=== PATIENT | female | born 1945 | race Caucasian/White ===

== ENCOUNTER 2021-10-02 20:15 | Outpatient (REF) | payer MEDICARE, BC, SELFPAY ==
[2021-10-02 22:18] LABS: SARS PCR* Negative SARS-CoV-2 (Negative)
== END 2021-10-02 20:16 | disposition home or self-care (01) ==
LOC: LAB 20:15
PROVIDERS: PCP Family Medicine; Visit Provider Internal Medicine
DX: Z20.822 Contact with and (suspected) exposure to COVID-19 (principal)
CPT/HCPCS: 87635

== ENCOUNTER 2021-10-03 20:36 | Outpatient (CLI) | payer MEDICARE, BC, SELFPAY | END 2021-10-03 20:37 | disposition home or self-care (01) | PROVIDERS: PCP Family Medicine; Visit Provider Internal Medicine | DX: G47.33 Obstructive sleep apnea (adult) (pediatric) (principal) | CPT/HCPCS: 95810 ==

== ENCOUNTER 2021-11-21 12:51 | Day surgery (SDC) | payer MEDICARE, BC, SELFPAY ==
[2021-11-21] MEDS: TETRACAINE 0.5% OPHTH 1 DROP EYE-LEFT ×2 (13:15→13:26)
[2021-11-21 13:17] VITALS: BMI 50.1
[2021-11-21] MEDS: KETOROLAC OPHTH 0.5% 1 DROP EYE-LEFT ×3 (13:23→13:39)
[2021-11-21 13:27] VITALS: BP 154/61; PULSE 67; RESP 16; TEMP 36.6; O2SAT 95
[2021-11-21] MEDS: SODIUM CHLORIDE 0.9 % (FLUSH) 10 ML SYRINGE IVF (13:41)
--- NOTE | 2021-11-21 13:49 | SUR.PREOP ---
The eye drops brought by the patient (Ketorolac and Prednisolone) are examined and I have determined they are labeled by the patient's pharmacy for this patient as prescribed by the surgeon. The bottles are intact, recently obtained and appear to be correct.
[2021-11-21] MEDS: TETRACAINE 0.5% OPHTH 2 DROP EYE-LEFT (14:14)
--- NOTE | 2021-11-21 14:18 | W.ANESCHARGE ---
Anesthesia Charges Start Date/Time Anesthesia Start Date: 11/21/21 Anesthesia Start Time: 14:10 Stop Date/Time Anesthesia Stop Date: 11/21/21 Anesthesia Stop Time: 14:55 Summary Emergency: No Extremes of Age: Over 69-CPT 14457
[2021-11-21] MEDS: BALANCED SALT IRRIG SOLN 15 ML EYE-LEFT (14:19)
--- NOTE | 2021-11-21 14:51 | P.OPTPRC_ITS ---
Procedure Note Date of procedure: 11/21/21 Will [facility] bill your pro fee for this procedure?: Yes Procedure Description: SURGEON: Monica Beasley MD PREOPERATIVE DIAGNOSIS: 1. Nuclear sclerotic cataract, left eye. 2. Miosis, left eye. POSTOPERATIVE DIAGNOSIS: 1. Nuclear sclerotic cataract, left eye. 2. Miosis, left eye. NAME OF OPERATION: Phacoemulsification of cataract with posterior chamber intraocular lens implantation in the left eye with pupilloplasty. ANESTHESIA: Topical. ESTIMATED BLOOD LOSS: Less than 2 cc. COMPLICATIONS: None. PATHOLOGY SPECIMEN: None. INDICATIONS: See consult note for details. The risks, benefits and alternatives of the procedure were explained to the patient, who elected to proceed and signed informed consent to do so. PROCEDURE: The patient was brought to the pre-holding area where the left eye was identified as the operative eye. I placed my initials above this eye. The patient received eye drops consisting of 0.5% tetracaine, 1% tropicamide, 10% phenylephrine, and 0.5% ketorolac. The patient was then brought to the operating room where the left eye was again identified as the operative eye. The eye was prepped with Betadine and draped in the usual sterile ophthalmic fashion. A #15 super-sharp blade was used to create a paracentesis site. 1% non-preserved intracameral lidocaine was injected into the anterior chamber. Endocoat was injected into the anterior chamber. A 2.4 mm keratome was used to create a three-plane self-sealing incision 1 mm anterior to the temporal limbus. A #15 super-sharp blade was used to create four additional paracentesis sites. Four Grieshaber iris hooks were placed in order to stretch the iris. A cystotome was used to create an anterior capsular leaflet. The Utrata forceps were used to extend this to form a continuous curvilinear capsulorrhexis. Hydrodissection was performed. The cataract was removed with phacoemulsification using the [id number] technique. The irrigation and aspiration tip was used to remove the remaining cortex. Healon was injected into the capsular bag. An DEBBIE ZCB00 intraocular lens of 22.5 diopters was injected into the capsular bag. The four Grieshaber iris hooks were removed. The irrigation and aspiration tip was used to remove the remaining viscoelastic. Miostat was injected into the anterior chamber. Balanced salt solution on a cannula was used to hydrate the wound, and the wound was found to be watertight. The pupil was noted to be round. DISPOSITION: The patient was taken to the recovery room and discharged to home in stable condition. The patient was instructed to call me or go to the emergency department with any sudden change, including dramatic loss of vision, severe pain in the eye or eyebrow region, nausea, or vomiting. The patient will follow up in the clinic tomorrow morning. Surgeon: Monica Beasley MD
[2021-11-21 15:02] VITALS: BP 135/68; PULSE 73; RESP 16; TEMP 36.8; O2SAT 99
--- NOTE | 2021-11-21 15:46 | W.ANESCHARGE ---
Anesthesia Charges Start Date/Time Anesthesia Start Date: 11/21/21 Anesthesia Start Time: 14:10 Stop Date/Time Anesthesia Stop Date: 11/21/21 Anesthesia Stop Time: 14:55 Summary Emergency: No Extremes of Age: Over 69-CPT [id number]
== END 2021-11-21 15:24 | disposition home or self-care (01) ==
PROVIDERS: PCP Family Medicine; Visit Provider Ophthalmology
PROC: (CPT 66982; principal; 2021-11-21 12:45)
DX: H25.12 Age-related nuclear cataract, left eye (principal); H57.03 Miosis
CPT/HCPCS: 66982; 00142; 99100; A9270; J2250; J3010; V2632

== ENCOUNTER 2021-12-05 09:00 | Day surgery (SDC) | payer MEDICARE, BC, SELFPAY ==
[2021-12-05] MEDS: TETRACAINE 0.5% OPHTH 1 DROP EYE-RIGHT ×2 (09:25→09:35)
[2021-12-05] MEDS: TETRACAINE 0.5% OPHTH 2 DROP EYE-RIGHT ×2 (09:25→10:35)
[2021-12-05 09:33] VITALS: BMI 50.1
[2021-12-05] MEDS: KETOROLAC OPHTH 0.5% 1 DROP EYE-RIGHT ×3 (09:33→09:48)
[2021-12-05 09:40] VITALS: BP 132/55; PULSE 68; RESP 20; TEMP 36.5; O2SAT 93
[2021-12-05] MEDS: BALANCED SALT IRRIG SOLN 15 ML EYE-RIGHT (10:40)
--- NOTE | 2021-12-05 11:08 | W.ANESCHARGE ---
Anesthesia Charges Start Date/Time Anesthesia Start Date: 12/05/21 Anesthesia Start Time: 10:31 Stop Date/Time Anesthesia Stop Date: 12/05/21 Anesthesia Stop Time: 11:12 Summary Emergency: No Extremes of Age: Over 69-CPT 49164
[2021-12-05 11:09] VITALS: BP 127/57; PULSE 72; RESP 18; TEMP 36.8; O2SAT 90
--- NOTE | 2021-12-05 11:15 | W.ANESCHARGE ---
Anesthesia Charges Start Date/Time Anesthesia Start Date: 12/05/21 Anesthesia Start Time: 10:31 Stop Date/Time Anesthesia Stop Date: 12/05/21 Anesthesia Stop Time: 11:12 Summary Emergency: No Extremes of Age: Over 69-CPT [id number]
--- NOTE | 2021-12-05 12:37 | P.OPTPRC_ITS ---
Procedure Note Date of procedure: 12/05/21 Will [facility] bill your pro fee for this procedure?: Yes Procedure Description: SURGEON: Monica Beasley MD PREOPERATIVE DIAGNOSIS: 1. Nuclear sclerotic cataract, right eye. 2. Miosis, right eye. POSTOPERATIVE DIAGNOSIS: 1. Nuclear sclerotic cataract, right eye. 2. Miosis, right eye. NAME OF OPERATION: Phacoemulsification of cataract with posterior chamber intraocular lens implantation in the right eye with pupilloplasty. ANESTHESIA: Topical. ESTIMATED BLOOD LOSS: Less than 2 cc. COMPLICATIONS: None. PATHOLOGY SPECIMEN: None. INDICATIONS: See consult note for details. The risks, benefits and alternatives of the procedure were explained to the patient, who elected to proceed and signed informed consent to do so. PROCEDURE: The patient was brought to the pre-holding area where the right eye was identified as the operative eye. I placed my initials above this eye. The patient received eye drops consisting of 0.5% tetracaine, 1% tropicamide, 10% phenylephrine, and 0.5% ketorolac. A [place] balloon was placed for 8 minutes pre-operatively. The patient was then brought to the operating room where the right eye was again identified as the operative eye. The eye was prepped with Betadine and draped in the usual sterile ophthalmic fashion. A #15 super-sharp blade was used to create a paracentesis site. 1% non-preserved intracameral lidocaine was injected into the anterior chamber. Endocoat was injected into the anterior chamber. A 2.4 mm keratome was used to create a three-plane self-sealing incision 1 mm anterior to the temporal limbus. A #15 super-sharp blade was used to create four additional paracentesis sites. Four Grieshaber iris hooks were placed in order to stretch the iris. A cystotome was used to create an anterior capsular leaflet. The Utrata forceps were used to extend this to form a continuous curvilinear capsulorrhexis. Hydrodissection was performed. The cataract was removed with phacoemulsification using the [id number] technique. The irrigation and aspiration tip was used to remove the remaining cortex. Healon was injected into the capsular bag. An DEBBIE ZCB00 intraocular lens of 22.0 diopters was injected into the capsular bag. The four Grieshaber iris hooks were removed. The irrigation and aspiration tip was used to remove the remaining viscoelastic. Miostat was injected into the anterior chamber. Balanced salt solution on a cannula was used to hydrate the wound, and the wound was found to be watertight. The pupil was noted to be round. DISPOSITION: The patient was taken to the recovery room and discharged to home in stable condition. The patient was instructed to call me or go to the emergency department with any sudden change, including dramatic loss of vision, severe pain in the eye or eyebrow region, nausea, or vomiting. The patient will follow up in the clinic tomorrow morning. Surgeon: Monica Beasley MD
== END 2021-12-05 11:45 | disposition home or self-care (01) ==
PROVIDERS: PCP Family Medicine; Visit Provider Ophthalmology
PROC: (CPT 66982; principal; 2021-12-05 09:00)
DX: H57.03 Miosis (principal); H25.11 Age-related nuclear cataract, right eye
CPT/HCPCS: 66982; 00142; 99100; A9270; J2250; J3010; V2632

== ENCOUNTER 2023-09-28 16:15 | Outpatient (CLI) | payer MEDICARE, BC, SELFPAY | END 2023-09-28 16:16 | disposition home or self-care (01) | LOC: AMB 09-29 05:47 | PROVIDERS: PCP Family Medicine; Visit Provider Emergency Medicine | DX: R06.09 Other forms of dyspnea (principal) | CPT/HCPCS: A0425; A0427 ==

== ENCOUNTER 2024-03-15 13:36 | Outpatient (REF) | payer MEDICARE, BC, SELFPAY ==
[2024-03-15 14:12] LABS: Bilirubin Urine Negative (Negative); Blood Urine Negative (Negative); Color Urine Yellow (Yellow); Glucose Urine Negative (Negative); Ketones Urine Negative (Negative); Leukocyte Esterase Urine Trace (Negative); Nitrite Urine Positive (Negative); Protein Urine Negative (Negative); Urobilinogen Urine 0.2 (0.2-1.0); pH Urine 5.5 (5.0-8.5)
[2024-03-15 14:44] LABS: Appearance Urine Cloudy (Clear)
[2024-03-15 14:46] LABS: Bacteria Urine Many; RBC Urine 0-2 (0-2); Squamous Epithelial Cell Urine Few (None-Few)
== END 2024-03-15 13:37 | disposition home or self-care (01) ==
LOC: NPINS 13:36
PROVIDERS: PCP Family Medicine; Visit Provider Nurse Practitioner Gerontology
DX: N39.0 Urinary tract infection, site not specified (principal)
CPT/HCPCS: 81001; 81003; 87086

== ENCOUNTER 2024-04-07 14:24 | Outpatient (REF) | payer MEDICARE, BC, SELFPAY ==
[2024-04-07 15:04] LABS: Appearance Urine Clear (Clear); Bilirubin Urine Negative (Negative); Blood Urine Negative (Negative); Color Urine Yellow (Yellow); Glucose Urine Negative (Negative); Ketones Urine Negative (Negative); Leukocyte Esterase Urine Negative (Negative); Nitrite Urine Negative (Negative); Protein Urine Negative (Negative); Urobilinogen Urine 0.2 (0.2-1.0)
[2024-04-07 15:13] LABS: RBC Urine 0-2 (0-2); WBC Urine 0-2 (0-5)
== END 2024-04-07 14:25 | disposition home or self-care (01) ==
LOC: NPINS 14:24
PROVIDERS: PCP Family Medicine; Visit Provider Nurse Practitioner Gerontology
DX: R35.0 Frequency of micturition (principal)
CPT/HCPCS: 81001; 87086

== ENCOUNTER 2024-04-27 11:21 | Outpatient (REF) | payer MEDICARE, BC, SELFPAY ==
[2024-04-27 11:55] LABS: Chloride* 103 mmol/L (96-114); Sodium* 138 mmol/L (135-149)
[2024-04-27 11:56] LABS: Potassium* 4.3 mmol/L (3.6-5.1)
[2024-04-27 11:59] LABS: Anion Gap 14 mEq/L (7-15); Blood Urea Nitrogen* 34 mg/dL (7-30); Calcium* 9.6 mg/dL (8.4-10.6); Carbon Dioxide* 21 mmol/L (20-32); Creatinine* 1.3 mg/dL (0.5-1.5); Estimated Glomerular Filt Rate 42 ml/min; Glucose* 232 mg/dL (60-115)
[2024-04-27 12:02] LABS: Hemoglobin A1C* 8.3 % (0-5.6)
== END 2024-04-27 11:22 | disposition home or self-care (01) ==
LOC: NPINS 11:21
PROVIDERS: PCP Family Medicine; Visit Provider Nurse Practitioner Gerontology
DX: E11.9 Type 2 diabetes mellitus without complications (principal)
CPT/HCPCS: 80048; 83036

== ENCOUNTER 2024-11-18 12:33 | Outpatient (REF) | payer MEDICARE, BC, SELFPAY ==
[2024-11-18 12:46] LABS: Appearance Urine Cloudy (Clear)
--- OUTSIDE RECORDS SUMMARY | 2024-11-19 00:14 | XMS_ITS | Clinical Summary ---
Author Organization 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. For routine questions regarding patient records, call [phone] during business hours, M-F 8:00 AM - 5:00 PM Central Time. Record requests for emergency care only can be directed to [phone] at any time.[facility] Allergies Active Allergy Reactions Criticality Noted Date Comments Kiwi Anaphylaxis 08/04/2006 Metformin Nausea Only Swelling of legs Naproxen Rash Nitrofurantoin Rash 05/09/2020 Oxybutynin Rash 04/30/2019 Penicillins Rash Pioglitazone Edema (Reselect Reaction) Sulfamethoxazole-Trimeth oprim Rash 03/08/2020 Her face is entirely red after 3 doses of septra per Daughter(Dr. Rene see notes 03/08/2020) Medications * This document contains information received from the source organization and may not represent a complete record from that organization. atorvastatin (LIPITOR) 40 mg tablet Take 40 mg by mouth at bedtime. 8 Active compress.stock ing,knee,reg,m ed misc For home use. Knee high compression stockings, 20-30 mm HG 7 Active famotidine (PEPCID) 20 mg tablet Take 20 mg by mouth 2 (two) times a day. 2 8 Active insulin syringe-needle U-100 0.5 mL 31 gauge x 5/16 syringe For administering insulin at home. Patient needs 3/10 cubic centimeters syringe with 1/2 inch 30 G needles. 6 Active nitroglycerin (NITROSTAT) 0.[address] 0.4 mg under the tongue every 5 (five) minutes as needed for chest pain. 7 Active cetirizine (ZyrTEC) 10 mg tablet Take 10 mg by mouth daily. 4 Active cholecalcifero l (VITAMIN D3) 50 mcg (2,000 Unit) capsule Take 3 capsules by mouth 2 (two) times a day. 0 Active sertraline (ZOLOFT) 50 mg tablet Take 50 mg by mouth daily. Active rivaroxaban (Xarelto) 15 mg tablet Take 15 mg by mouth daily with evening meal. Active acetaminophen (TYLENOL) 325 mg tablet Take 2 tablets (650 mg total) by mouth every 4 (four) hours as needed for pain or fever. 0 1 Active Additional Information Patient taking differently:650 mg oral2 times daily, Reported on 09/29/2023 polyethylene glycol (MIRALAX) 17 gram powder packet Take 1 packet (17 g total) by mouth daily as needed for constipation. Dissolve each 17 g dose in 240 mLs (8 ounces) of beverage. 1 Active multivitamin-e ye (PRESERVISION LUTEIN) 226 mg-200 Unit-5 mg-0.8 mg capsule Take 1 capsule by mouth 2 (two) times a day. Active potassium chloride (KLOR-CON M) 10 mEq ER tablet TAKE 1 TABLET (10 MEQ) BY MOUTH ONCE DAILY WITH A MEAL. 2 Active UltiCare Pen Needle 29 gauge x 1/2 needle USE PER MD INSTRUCTIONS (5 INJECTIONS DAILY) 3 Active montelukast (SINGULAIR) 10 mg tablet Take 10 mg by mouth at bedtime. 3 Active insulin glargine 100 unit/mL (3 mL) pen Inject 8-30 Units under the skin 2 (two) times a day. 30 units in the morning and 8 units in the evening. Active insulin aspart, niacinamide, (Fiasp U-100 Insulin) 100 unit/mL vial Inject 14 Units under the skin 3 (three) times a day with meals. Plus sliding scale Active DME OxygenIndicati ons:COVID-19 Infection,Morb id Obesity Body Mass Index 50.0-59.9 Adult (HCC) DME Order - for details see Order Report 1 each 4 Active DME OxygenIndicati ons:COVID-19 Infection,Morb id Obesity Body Mass Index 50.0-59.9 Adult (HCC) DME Order - for details see Order Report 1 each 4 Active torsemide (Demadex) 20 mg tablet Take 1 tablet (20 mg total) by mouth daily. 4 Active lisinopriL 10 mg tabletIndicati ons:Chronic Diastolic (Congestive) Heart Failure (HCC),Hyperten cosme Essential Primary Take 1 tablet (10 mg total) by mouth daily. Hold until PCP follow-up. 4 Active Active Problems Problem Noted Date Diagnosed Date COVID-19 Infection 09/28/2023 Morbid Obesity Body Mass Index 50.0-59.9 Adult 1 03/13/2022 Chronic Diastolic (Congestive) Heart Failure 02/2022 Failure Renal Acute (Acute Kidney Injury) 2021 Shortness Of Breath 11/30/2020 Dyslipidemia 11/30/2020 Personal History Of Infectio us And Parasitic Disease (COVID-19) 11/30/2020 Half-Way (Current) Anticoagulant Treatment 11/11 Atrial Fibrillation Paroxysmal 11/30/2020 Atherosclerotic Heart Diseas e Of [place] Coronary Artery Without Angina Pectoris 10/01/2020 Diabetes Mellitus Type 2 09/25/2020 Chronic Systolic (Congestive) Heart Failure 09/10 Incontinence Urinary 02/17/2018 Apnea Sleep Obstructive 11/13/2017 Presence Of Right Artificial Knee Joint 04/30/19 Hypertension Essential Primary 02/23/2013 Resolved Problems Problem Noted Date Diagnosed Date Resolved Date Respiratory Failure With Hypoxia 09/25/2020 11/30/2020 Flutter Atrial 09/25/2020 11/30/2020 Pneumonia Due To COVID-19 09/20/2020 Immunizations Immunization Administration Dates Next Due Influenza TIV (IM) 11/03/2018,,01/17/2017,2012,11/29/2011,11/22/2010,11/30/2009,1 02/14/2008,12/15/2007,12/04/2006, 005,11/29/2003,12/08/2002 Influenza, Quadrivalent, Adj uvanted, Preservative Free 12/17/2019 PCV13 02/21/2015 PPSV23 11/29/2011,02/10/1995 Td, (Adult) Unspecified 07/02/2002 Tdap 02/21/2015 influenza trivalent high dos e (HD)(PF) 01/25/2016,12/26/2014,12/03/2013 Social History Tobacco Use Types Packs/Day Years Used Date Smoking Tobacco: Former Smokeless Tobacco: Never Tobacco Cessation:Counseling Given: Not Answered Alcohol Use Standard Drinks/Week Comments Not Currently 0 (1 standard drink = 0.6 oz pur e alcohol) [facility] Utilities Answer Date Recorded In the past [address] [facility] [employer], oil, or water Wanna Migrate threatened to shut off services in your home? Patient declined 10/01/2023 Humiliation, Afraid, Rape, and Kick questionnair e Answer Date Recorded Within the last year, have y ou been afraid of your partner or ex-partner? Patient declined 10/01/2023 Within the last year, have y ou been humiliated or emotionally abused in other ways by your partner or ex-partner? Patient declined 10/01/2023 Within the last year, have y ou been kicked, hit, slapped, or otherwise physically hurt by your partner or ex-partner? Patient declined 10/01/2023 Within the last year, have y ou been raped or forced to have any kind of sexual activity by your partner or ex-partner? Patient declined 10/01/2023 Hunger Vital Sign Answer Date Recorded Within the past 12 months, y ou worried that your food would run out before you got the money to buy more. Patient declined Within the past 12 months, t he food you bought just didn't last and you didn't have money to get more. Patient declined PRAPARE - Transportation Answer Date Re corded In the past 12 months, has l ack of transportation kept you from medical appointments or from getting medications? Patient declined 10/01/2023 In the past 12 months, has l ack of transportation kept you from meetings, work, or from getting things needed for daily living? Patient declined 10/01/2023 Housing Stability Answer Date Recorded What is your living situation today? Patient dec lined 10/01/2023 Comments No Sex and Gender Information Value Date Recorded Sex Assigned at Female 09/08/2017 3:10 PM CDT Legal Sex Female 12:24 PM CDT Gender Identity Female 09/08/2017 3:10 PM CDT Sexual Orientation Straight 09/08/2017 3: 10 PM CDT Last Filed Vital Signs Vital Sign Reading Time Taken Comments Blood Pressure 136/61 10/02/2023 4:07 PM CDT Pulse 75 10/02/2023 4:07 PM CDT Temperature 36.9 C (98.4 F) 10/02/2023 4:07 PM CDT Respiratory Rate 16 10/02/2023 4:07 PM CDT Oxygen Saturation 92% 10/02/2023 4:07 PM CDT Inhaled Oxygen Concentration - - Weight 124 kg (274 lb 4 oz) 10/01/2023 5:00 AM C DT Height 160 cm (5' 3) 09/28/2023 7:52 PM CDT Body Mass Index 48.58 09/28/2023 7:52 PM CDT Plan of Treatment Health Maintenance Due Date Last Done Comments Diabetic Eye Exam 1945 Diabetic Office Visit with Foot Exam 1944 Office Visit for Blood Pressure Check / Re-check 1945 Zoster Vaccines (1 of 2) 1994 RSV vaccine - (32-36 weeks) or 50+ years (1 - 1-dose 75+ series) 05/05/2019 Urine Albumin 07/10/2022 07/10/2021 Depression Screening (Annual PHQ-2) 02/11/2024 Fall Risk Screen (Annual) 02/11/2024 Hemoglobin A1C 05/17/2024 11/17/2023, 06/2 09/2023, 01/06/2023, Additional history exists Creatinine Level (Kidney Function Test) 10/05/2024 10/06/2023, 10/02/2023, 10/01/2023, Additional history exists Potassium Level 10/05/2024 10/06/2023, 09/11, 10/01/2023, Additional history exists Sodium Level 10/05/2024 10/06/2023, 09/11, 10/01/2023, Additional history exists COVID-19 Vaccine ( season) 2024 Influenza Vaccine (#1) 2024 , 01/07/2023, 12/18/2021, Additional history exists DTaP,Tdap,and Td Vaccines (2 - Td or Tdap) 02/21/2025 02/21/2015, 07/02/2002 Bone Density Scan (Osteoporosis Screen) Discontinued 12/03/2011 Pneumococcal vaccine (50+ years) Completed 02/21/2015, 11/29/2011, 02/10/1995 Mammogram Discontinued 04/16/2022, 12/0 08/2020, 12/29/2019, Additional history exists HPV Vaccines Aged Out No longer eligi ble based on patient's age to complete this topic IPV Vaccines Aged Out No longer eligi ble based on patient's age to complete this topic Medical Devices Implanted Type 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 Device Identifier Shelf Expiration Date Model / Serial / Lot Knee Implant Knee Implant Right: Knee Stent Other Stent Other Heart Procedures Procedure Name Priority Date/Time Associated Diagnosis Comments BASIC METABOLIC PANEL, S/P Routine 10/02/2023 4:39 AM CDT HEMOGLOBIN A1C, B Routine 06/10/2022 1:0 4 PM CDT Hypertension Essential Primary Diabetes Mellitus Type 2 (HCC) ALBUMIN, RANDOM, U Routine 07/10/2021 9: 58 AM CDT Failure Renal Acute (Acute Kidney Injury) (HCC) Congestive Heart Failure (HCC) Diabetes Mellitus Type 2 With Diabetic Chronic Kidney Disease (HCC) Hypertension And Chronic Kidney Disease Stage 1 To 4 from Last 3 Months or Most Recently Relevant to Health Maintenance Results * (ABNORMAL) Basic Metabolic Panel (10/02/2023 4:39 AM CDT) Pathologist [facility] Potassium, S 4.4 3.6 - 5.2 mmol/L 10/02/2023 5:56 AM CDT DTL Sodium, S 139 135 - 145 mmol/L 10/02/2023 5:56 AM CDT DTL Chloride, S 103 98 - 107 mmol/L 10/02/2023 5:56 AM CDT DTL Bicarbonate, S 21(L) 22 - 29 mmol/L 10/02/2023 5:56 AM CDT DTL Anion Gap 15 7 - 15 10/02/2023 5:56 AM CDT DTL BUN (Blood Urea Nitrogen), S 45(H) 6 - 21 mg/dL 10/02/2023 5:56 AM CDT DTL Creatinine 1.37(H) 0.59 - 1.04 mg/dL 10/02/2023 5:56 AM CDT DTL Estimated GFR (eGFR) 39(L) >=60 mL/min/BSA 10/02/2023 5:56 AM CDT DTL Comment: Estimated GFR calculated using the 2020 CKD_EPI creatinine equation. Calcium, Total, S 9.1 8.8 - 10.2 mg/dL 10/02/2023 5:56 AM CDT DTL Glucose, S 142(H) 70 - 140 mg/dL 10/02/2023 5:56 AM CDT DTL Blood (Blood, Venous) 10/02/2023 4:39 AM CDT 10/02/2023 5:37 AM CDT Desiree Bundy M.D. LAB BLOOD ADD-ON Final Resul t [facility] [address] [place] [address], [facility] [place] [facility] [address] [place] [address] * (ABNORMAL) Hemoglobin A1c (06/10/2022 1:04 PM CDT) Hemoglobin A1c, B 8.1(H) 4.0 - 5.6 % 06/10/2022 2:02 PM CDT DTL Comment: Hemoglobin A1c values greater than or equal to 6.5 percent are diagnostic for diabetes mellitus. Diagnosis should be confirmed by repeat testing. In diabetic patients, HbA1c goals should be discussed with healthcare provider. Blood (Blood, Venous) 06/10/2022 1:04 PM CDT 06/10/2022 1:31 PM CDT Margarito Irizarry M.D. LAB BLOOD ADD-ON Final Resu lt Performing Organization Address City/[facility]/ZIP Co de Phone Number [facility] [address] [place] [address], [facility] [address] [place] [address] * (ABNORMAL) Albumin, Random, Urine (07/10/2021 9:58 AM CDT) Pathologist [facility] Albumin, Random, U 29.4 mg/L 2021 11:34 AM CDT DTL Comment: ----ADDITIONAL INFORMATION---- This test has been modified from the forecast analyst's instructions. Its performance characteristics were determined by [facility] in a manner consistent with CLIA requirements. This test has not been cleared or approved by the U.S. Food and Drug Administration. Creatinine 65 mg/dL 07/10/2021 11:33 AM CDT DTL Albumin/Creatinine Ratio 45(H) <25 mg/g 07/10/2021 11:34 AM CDT DTL Urine (Urine, Voided) 07/10/2021 9:58 AM CDT 07/10/2021 10:24 AM CDT Anshu Birch M.D. LAB URINE ORDERABLES Final Result Performing Organization Address [facility] Co de Phone Number [facility] [address] [place] [address], [facility] [address] [place] [address] from Last 3 Months or Most Recently Relevant to Health Maintenance Insurance MEDICARE [facility] [place] [address] Advance Directives For more information, please contact: [phone] * DNR/DNI (Latest Code Status on File) Date Activated Date Inactivated Comments 09/28/2023 11:07 PM 10/02/2023 6:49 PM Question Answer Comments DNR/DNI (Do Not Resuscitate/Do Not Intubate): Di scussed-Patient * DNR Date Activated Date Inactivated Comments 11/30/2020 10:12 PM 12/04/2020 6:20 PM * DNR/DNI Date Activated Date Inactivated Comments 11/30/2020 10:05 PM 11/30/2020 10:11 PM * DNR Date Activated Date Inactivated Comments 09/20/2020 6:05 PM 10/06/2020 12:12 PM Healthcare Agents on File Name Relationship Healthcare Agent Relationshi p Communication Myrna Styles Daughter Health Care Agent Care Teams Television Repair Teacher Relationship Specialty Start Date End Date Elsewhere, Pcp PCP - General Family Medicine 12/01/20
--- OUTSIDE RECORDS SUMMARY | 2024-11-19 00:14 | XMS_ITS | Clinical Summary ---
Author Organization [facility] Address [address] [place] [address] Care Team Providers Care Customs Inspector Name Role Phone Diego Hyatt MD Primary Care Provider [phone] Allergies Active Allergy Reactions Criticality Noted Date Comments Pioglitazone Edema Kiwi Throat Swelling/Closing 08/04/2006 Nitrofurantoin Rash 05/09/2020 Metformin Nausea Only Swelling of legs Naproxen Rash Oxybutynin Rash 04/30/2019 Penicillins Rash Pioglitazone Edema 01/07/2023 Sulfamethoxazole-Trimetho prim Rash 03/08/2020 Her face is entirely red after 3 doses of septra per Daughter(Dr. Rene see notes 03/08/2020) Medications cholecalciferol (VITAMIN D) 1,000 unit capsule Take 2 capsules by mouth once daily. 0 0 Active Walker with Wheels As directed. For home use. Diagnosis: hip pain, 719.45 1 Device 0 2 Active Diabetic Supplies, Miscellan.Indica tions:Type II or unspecified type diabetes mellitus without mention of complication, not stated as uncontrolled (HC) Dispense glucose meter, test strips and lancets covered by patient insurance. Test 4 times per day. One touch ultrasound monitor 1 Kit 0 2 Active cetirizine (ZYRTEC) 10 mg tablet Take 1 tablet by mouth once daily. 0 4 Active Diabetic ShoeIndications: Type 2 diabetes mellitus without complication, with long-term current use of insulin (HC) As directed 2 Each. 1 Units 7 Active Chair LiftIndications: Pneumonia due to COVID-19 virus,Weakness of both lower extremities Lift chair For home use. 1 Each 1 Active Comp Stocking,Knee,Re gular,MedIndicat ions:Bilateral lower extremity edema For home use. Knee high compression stockings, 20-30 mm HG. 4 pairs 4 Each 2 1 Active polyethylene glycol (MIRALAX; GLYCOLAX) 17 g powder for solution Mix 17 g in liquid then take by mouth once daily if needed. 1 Active pen needle,diabetic dual safty (BD AutoShield Duo Pen Needle) 30 gauge x 04/25 ndleIndications: Type 2 diabetes mellitus without complication, with long-term current use of insulin (HC) As directed. 200 Each 11 1 Active acetaminophen (TYLENOL) 325 mg tablet Take 2 Tablets (650 mg) by mouth every 4 hours if needed. 0 1 Active Incontinence Pad, Liner, Disp padsIndications: Mixed incontinence Use as needed 72 Each 11 2 Active vit C,L-Pv-dixmo-lut ein-zeaxan (PreserVision AREDS-2) capsuleIndicatio ns:Bilateral exudative age-related macular degeneration, unspecified stage (HC) Take 1 Capsule by mouth once daily. 0 3 Active nitroglycerin (Nitrostat) 0.4 mg sublingual tabletIndication s:Pre-clinical coronary artery disease Place 1 Tablet (0.4 mg) under the tongue every 5 minutes if needed for Chest Pain. 25 Tablet 4 3 Active benzonatate (TESSALON) 100 mg capsuleIndicatio ns:Cough in adult Take 1-2 Capsules (100-200 mg) by mouth 3 times daily if needed for Cough. 30 Capsule 4 Active rivaroxaban (Xarelto) 15 mg tab tabletIndication s:Atrial flutter, unspecified type (HC) TAKE 1 TABLET (15 MG) BY MOUTH ONCE DAILY 90 Tablet 3 4 Active Insulin [place], Disposable, (UltiCare Pen Needle) 29 gauge x 1/2Indications: Type 2 diabetes mellitus with chronic kidney disease, with long-term current use of insulin, unspecified CKD stage (HC) USE PER MD INSTRUCTIONS (5 INJECTIONS DAILY)-- #500 is a 3 month supply. 500 Each 3 4 Active blood sugar diagnostic (FreeStyle Test) stripIndications :Type 2 diabetes mellitus with chronic kidney disease, with long-term current use of insulin, unspecified CKD stage (HC) Free Style Cassandra. E11.9 IDDM type II - Test 3 times/day.Free Style [place]andra. E11.9 IDDM type II - Test strips to check the monitor 30 Each 5 4 Active potassium chloride (KLOR-CON M10) 10 mEq extended-release tablet (part/cryst)Xenia cations:Hypokale fely TAKE 1 TABLET (10 MEQ) BY MOUTH ONCE DAILY WITH A MEAL. 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 1 Each 4 Active atorvastatin (LIPITOR) 40 mg tabletIndication s:Dyslipidemia TAKE 1 TABLET (40 MG) BY MOUTH ONCE DAILY. 90 Tablet 3 4 Active famotidine (PEPCID) 20 mg tabletIndication s:Gastroesophage al reflux disease without esophagitis TAKE 1 TABLET (20 MG) BY MOUTH 2 TIMES DAILY. 180 Tablet 3 4 Active sertraline (ZOLOFT) 100 mg tabletIndication s:Adjustment disorder with depressed mood Take 1 Tablet (100 mg) by mouth once daily in the morning. 90 Tablet 3 4 Active wheelchairIndica tions:Chronic pain of right knee,Quadriceps muscle rupture, right, sequela Motorized Wheelchair: Bariatric (over 250 lbs) Length of need: 99 months, [employer] carry on brand 1 Each 4 Active lisinopriL (PRINIVIL; ZESTRIL) 10 mg tabletIndication s:HTN (hypertension) TAKE 1 TABLET (10MG) BY MOUTH ONCE DAILY. 90 Tablet 3 4 Active torsemide (DEMADEX) 20 mg tabletIndication s:HTN (hypertension),B ilateral lower extremity edema TAKE ONE TABLET BY MOUTH ONCE DAILY 90 Tablet 4 Active insulin aspart niacinamide (Fiasp FlexTouch U-100 Insulin) 100 unit/mL (3 mL) penIndications:T ype 2 diabetes mellitus with diabetic chronic kidney disease, unspecified CKD stage, unspecified whether fpc insulin use (HC) Use 10-18 units before each meal 5 Active Basaglar KwikPen U-100 Insulin 100 unit/mL (3 mL) penIndications:T ype 2 diabetes mellitus with chronic kidney disease, with long-term current use of insulin, unspecified CKD stage (HC) Product desired: BASAGLAR KWIKPEN,BASAGLAR KWIKPEN, inject 24 units in the AM and 8 units in the PM 5 Active traMADoL (ULTRAM) 50 mg tablet 5 Active CPAPIndications: PAULA (obstructive sleep apnea) RESMED CPAP (E0601) machine for home use at pressure: 17 with EPR of 3 cmw, Choice of mask (A7030 or A7034) w/full face cushion (A7031) x1/mo, nasal cushion (A7032) x2/mo, or nasal pillows (A7033) x 2/mo; Length of Need: 99 months; Frequency of use: Daily 1 Each 11 5 Active Active Problems Problem Noted Date Diagnosed Date Bilateral exudative age-rela mana macular degeneration, unspecified stage 08/08/2023 Depression, recurrent 10/10/2022 Chronic diastolic CHF (congestive heart failure) 03/21/2022 Type 2 diabetes mellitus wit h stage 3b chronic kidney disease, with long-term current use of insulin 03/21/2022 Acute renal failure 04/20/2021 Paroxysmal atrial fibrillation 11/30/2020 Shortness of breath 11/30/2020 Atherosclerotic heart diseas e of [place] coronary artery without angina pectoris 10/01/2020 Type 2 diabetes mellitus wit h chronic kidney disease, with long-term current use of insulin 03/03/2018 Urinary incontinence in female 02/17/2018 Type 2 diabetes mellitus wit h diabetic chronic kidney disease 02/13/2018 Bronchitis 11/17/2017 PAULA 07/22/2005 AHI-105 11/13/2017 Morbid obesity with BMI of 50.0-59.9, adult 08/11 S/P total knee arthroplasty, right 04/29/2017 Presence of right artificial knee joint 04/30/19 18 Onychomycosis 08/20/2016 Chest pain 03/28/2015 Former smoker 03/28/2015 Adenomatous colon polyp 03/25/2014 Overview (03/25/2014): Colonoscopy 03/2014 polyps repeat in 5 years HTN (hypertension) 02/23/2013 Degenerative arthritis of knee and hip 2 Vitamin D deficiency 03/17/2009 UTI (lower urinary tract infection) 11/10/2008 Type II diabetes mellitus 01/01/2002 Dyslipidemia Sleep apnea Osteoarthrosis, unspecified whether generalized or localized, unspecified site Obesity ASCVD (arteriosclerotic cardiovascular disease) Overview (03/28/2015): -Stenting to diagonal 1 03/10/2009 -Stress Myoview 02/07/2010: negative for ischemia, EF 68% -Stress Myoview 03/21/2015 Medium sized area of mild ischemia involving the mid and apical anterior wall and apex EF 67% Resolved Problems Problem Noted Date Diagnosed Date Resolved Date Angina concurrent with and d ue to arteriosclerosis of coronary artery 06/05/202107/12 Chest tightness, discomfort, or pressure 02/28/2009 12/01/2011 Fluid overload 08/04/2006 12/01/2011 Overview (11/10/2009): Inactive ICD-9 code replaced with correct active ICD-9. Display name retained. Encounters Date Type Department Care Team Description 09/02/2024 3:00 PM CDT Office Visit [facility] [address] [place] [address] Zay Patiño MD Sleep Follow-up 09/02/2024 Travel from Last 3 Months Immunizations Immunization Administration Dates Next Due AMB INFLUENZA IIV3 (AGE 65+ YRS) PF (Flu Clinic Only) 01/16/2018 Amb Influenza, Inact (High-d ose) (Flu Clinic Only) 12/03/2013 Influenza Virus, Unspecified 11/24/2012, 11/29/2011,11/22/2010,2009,12/14/2008,12/15/2007,12/04/2006,1 ,11/29/2003,12/08/2002 Influenza, High-dose Inactivated 01/25/2016,12/11,12/03/2013 Influenza, IIV3 (Age 6-35 mos) 11/22/2010 Influenza, IIV3 (Age >=3 years) 11/25/19,11/29/2011,11/22/2010,2009,12/14/2008,12/15/2007,12/04/2006,1 ,11/29/2003,12/08/2002 Influenza, Inactivated AIIV4 (Age 65+ Years) Preserv Free 01/07/2023,12/18/2021,11/09/2020,2019 Influenza, Inactivated IIV3 (Age 65+ Years) Preserv Free 11/25/2023,11/03/2018,01/17/2017 Pneumococcal Poly,23-Valent (Pneumovax) 11/29/2011,02/10/1995 Pneumococcal conj 13-Valent (Prevnar 13) 02/21/2015 TD, UNSPECIFIED 07/02/2002 Td (Age >=7 Years) 07/02/2002 Tdap 02/21/2015 Family History Medical History Relation Name Comments Cancer-colon Brother Cancer Father skin Diabetes Father Heart Disease Father Heart Disease Mother Cancer Sister ovarian cancer Cancer-breast No Family History Cancer-ovarian No Family History Relation Name Status Comments Brother Father (Age 86) Mother Alive Sister Social History Tobacco Use Types Packs/Day Years Used Date Smoking Tobacco: Former Cigarettes 0.5 25 0 02/10/1966 - 02/10/1991 Smokeless Tobacco: Never Tobacco Cessation:Counseling Given: Yes Alcohol Use Standard Drinks/Week Comments No 0 (1 standard drink = 0.6 oz pur e alcohol) PHQ-2 Answer Date Recorded PHQ-2 TOTAL SCORE 3 11/25/2023 Social Connections Answer Date Recorded Do you often feel lonely or isolated from those around you? 0 01/07/2023 Financial Resource Strain Answer Date R ecorded Difficulty of Paying Living Expenses 3 01/07/2023 Difficulty of Paying Living Expenses Not on file 01/07/2023 Food Insecurity Answer Date Recorded Do you worry your food will run out before you are able to buy more? 1 01/07/2023 Transportation Needs Answer Date Record ed Does lack of transportation keep you from medica l appointments? 1 01/07/2023 Does lack of transportation keep you from work, meetings or getting things that you need? 1 01/07/2023 Housing Stability Answer Date Recorded What is your housing situation today? 1 01/07/2023 Interpersonal Safety Answer Date Record ed Are you being hit, kicked, p ushed or yelled at (see row info)? No 05/16/2024 Interpersonal Safety Abuse 12 - 18 Not on file 05/16/2024 Interpersonal Safety Ambulatory Vulnerability No t on file 05/16/2024 Comments No Sex and Gender Information Value Date Recorded Sex Assigned at Not on file Legal Sex Female 5:24 AM PALLIATIVE CARE COORDINATOR Gender Identity Not on file Sexual Orientation Not on file Obstetrics History Para Term AB IAB SAB Ectopic Multiple Livin g Live Births 2 2 3 Date Outcome GA Total Labor Labor/2nd/3rd Weight Sex Type Anes PTL Angela A1 A5 Name Clin Para Para Last Filed Vital Signs Vital Sign Reading Time Taken Comments Blood Pressure 119/72 09/02/2024 3:01 PM CDT Pulse 84 09/02/2024 3:01 PM CDT Temperature 36.6 C (97.9 F) 05/16/2024 3:49 PM CDT Respiratory Rate 20 05/16/2024 3:43 PM CDT Oxygen Saturation 93% 09/02/2024 3:01 PM CDT Inhaled Oxygen Concentration - - Weight 126.1 kg (278 lb) 09/02/2024 3:01 PM CDT Height 154.9 cm (5' 1) 09/02/2024 3:01 PM CDT Body Mass Index 52.53 09/02/2024 3:01 PM CDT Plan of Treatment Upcoming Encounters Date Type Department Care Team (Late st Contact Info) Description 12/21/2024 2:30 PM PALLIATIVE CARE COORDINATOR Office Visit [facility] [address] [place] [address] Zay Patiño MD [address] [place] [address] Health Maintenance Due Date Last Done Comments Zoster (shingles) series for age 50+ (1 of 2) 1994 RSV vaccine for adults or (1 - 1-dose 75+ series) 05/05/2019 Medicare Wellness for age 65+ 10/11/2023 10/10/2022, 06/05/2021, 03/15/2014 COVID-19 vaccine series ( season) 2024 Influenza Vaccine (#1) 2024 , 01/07/2023, 12/18/2021, Additional history exists Depression screening for age 12+ 11/24/2024 11/25/2023, 10/10/2022, 07/01/2022, Additional history exists Tetanus booster 02/21/2025 02/21/2015, 06/11, 07/02/2002 BMI (ht and wt on same day) for age 18+ 09/02/2025 09/02/2024, 01/07/2023, 11/16/2021, Additional history exists DEXA/DXA scan for age 65+ Completed 12/03/2011 Pneumococcal series for age 50+ Completed 02/21/2015, 11/29/2011, 02/10/1995 Hepatitis B series for 19+ Aged Out N o longer eligible based on patient's age to complete this topic Medical Devices Implanted Type Area Solar Installation Foreman Device Identifier Shelf Expiration Date Model / Serial / Lot Sledinson Miniarc - [id number] Implanted:Qty: 1 on 09/15/2007 at [facility] [employer] 05/19/2010 [id number] / / [id number] Procedures Procedure Name Priority Date/Time Associated Diagnosis Comments XR DXA BONE DENSITY 2 SITES AXIAL Routine 12/03/2011 2:28 PM CDT Vitamin d deficiency from Last 3 Months or Most Recently Relevant to Health Maintenance Results * XR DEXA BONE DENSITY 2 SITES (12/03/2011 2:28 PM CDT) Anatomical Region Laterality Modality Spine, HIPS, HIPL, HIPR Other Narrative 12/09/2011 4:48 PM CDT Please see scanned document for results of this study. Procedure Note Cara Scott PA - 12/09/2011 Please see scanned document for results of this study. us Debora Monae MD DEXA Final Result from Last 3 Months or Most Recently Relevant to Health Maintenance Insurance * Guarantor: Suhas Styles Account Type Relation to Patient Date of Phone Billing Address Personal/Family Spouse 1937 [address] [place] [address] [place] [address] MEDICARE PART B HB ONLY MEDICARE PART A HB ONLY MEDICARE PB ONLY [facility] Advance Directives Documents on File Type Date Recorded Patient Gamb Cutter Expl jenna SCHMIDT 02/17/2024 * Full Code (Latest Code Status on File) Date Activated Date Inactivated Comments 03/28/2015 10:17 AM 03/28/2015 6:13 PM * Full Code Date Activated Date Inactivated Comments 03/10/2009 9:46 AM 03/11/2009 4:56 PM * Full Code Date Activated Date Inactivated Comments 09/15/2007 8:38 AM 09/15/2007 11:48 AM * Full Code Date Activated Date Inactivated Comments 09/15/2007 6:42 AM 09/15/2007 8:38 AM Care Teams Customs Inspector Relationship Specialty [place] [address] [place] [id number] PCP - General Family Practice 05/16/24
== END 2024-11-18 12:34 | disposition home or self-care (01) ==
LOC: NPINS 12:33
PROVIDERS: PCP Family Medicine; Visit Provider Nurse Practitioner Gerontology
DX: R44.3 Hallucinations, unspecified (principal)
CPT/HCPCS: 81001; 87086

== ENCOUNTER 2024-11-23 12:04 | Outpatient (REF) | payer MEDICARE, BC, SELFPAY ==
[2024-11-23 13:36] LABS: Hematocrit* 40.8 % (33.0-51.0); Hemoglobin* 12.9 gm/dL (12.0-16.0); Immature Granulocytes Abs Auto 0.02 K/uL (0.00-0.30); Immature Granulocytes Pct Auto 0.3 %; Lymphocytes Absolute Auto 1.78 K/uL (0.90-2.90); Mean Corpuscular HGB Conc 32 gm/dL (32-36); Mean Corpuscular Hemoglobin 27 pg (26-34); Mean Corpuscular Volume 86 fL (80-100); RDW Coefficient of Variation % 15.0 % (11.5-15.5); Red Blood Count* 4.72 m/uL (4.00-5.20); White Blood Count* 7.51 K/uL (4.50-11.00)
[2024-11-23 13:40] LABS: Slide Review Reflex No
[2024-11-23 13:49] LABS: Chloride* 103 mmol/L (96-114); Potassium* 3.8 mmol/L (3.6-5.1); Sodium* 137 mmol/L (135-149)
[2024-11-23 13:52] LABS: Anion Gap 11 mEq/L (7-15); Blood Urea Nitrogen* 22 mg/dL (7-30); Carbon Dioxide* 23 mmol/L (20-32); Creatinine* 1.1 mg/dL (0.5-1.5); Estimated Glomerular Filt Rate 51 ml/min
[2024-11-23 13:53] LABS: Calcium* 9.8 mg/dL (8.4-10.6); Glucose* 81 mg/dL (60-115)
--- OUTSIDE RECORDS SUMMARY | 2024-11-24 00:14 | XMS_ITS | Clinical Summary ---
Author Organization [facility] Address [address] [place] [address] Care Team Providers Care Automated Access Systems Technician Name Role Phone Elsewhere, Pcp Primary Care Provider Unavailabl e Source Comments Patient records contain information from all sites at [facility]. For routine questions regarding patient records, call [phone] during business hours, M-F 8:00 AM - 5:00 PM Central Time. Record requests for emergency care only can be directed to [phone] at any time.[facility] Allergies Active Allergy Reactions Criticality Noted Date [...] Infectio us And Parasitic Disease (COVID-19) 11/30/2020 Senior Living (Current) Anticoagulant Treatment 11/11 Atrial Fibrillation Paroxysmal 11/30/2020 Atherosclerotic Heart Diseas e Of [place] Coronary Artery Without Angina Pectoris 10/01/2020 Diabetes [...] drink = 0.6 oz pur e alcohol) [facility] Utilities Answer Date Recorded In the past 12 months has [facility] [employer], oil, or water [employer] threatened to shut off services in your [...] this topic Medical Devices Implanted Type Area Hide Trimmer Device Identifier Shelf Expiration Date Model / [...] Metabolic Panel (10/02/2023 4:39 AM CDT) Pathologist [facility] Potassium, S 4.4 3.6 - 5.2 mmol/L [...] M.D. LAB BLOOD ADD-ON Final Resul t [facility] [address] [place] [address], [facility] [address] [place] [address] * (ABNORMAL) Hemoglobin A1c (06/10/2022 1:04 PM [...] ADD-ON Final Resu lt Performing Organization Address City/[facility]/ZIP Co de Phone Number [facility] [address] [place] [address], [facility] [address] [place] [address] * (ABNORMAL) Albumin, Random, Urine (07/10/2021 9:58 AM CDT) Pathologist [facility] Albumin, Random, U 29.4 mg/L 2021 11:34 AM CDT DTL Comment: ----ADDITIONAL INFORMATION---- This test has been modified from the line erector's instructions. Its performance characteristics were determined by [facility] in a manner consistent with CLIA requirements. This test has not been cleared or approved by the U.S. Food and Drug Administration. Creatinine 65 mg/dL 07/10/2021 11:33 AM CDT DTL Albumin/Creatinine Ratio 45(H) <25 mg/g 07/10/2021 11:34 AM CDT DTL Urine (Urine, Voided) 07/10/2021 9:58 AM CDT 07/10/2021 10:24 AM CDT Anshu Birch M.D. LAB URINE ORDERABLES Final Result Performing Organization Address [facility] Co de Phone Number [facility] [address] [place] [address], [facility] [address] [place] [address] from Last 3 Months or Most Recently Relevant to Health Maintenance Insurance MEDICARE [facility] [place] [address] Advance Directives For more information, please contact: [phone] * DNR/DNI (Latest Code Status on File) [...] Styles Daughter Health Care Agent Care Teams Automated Access Systems Technician Relationship Specialty Start Date End Date Elsewhere, Pcp PCP - General Family Medicine 12/01/20
--- OUTSIDE RECORDS SUMMARY | 2024-11-24 00:14 | XMS_ITS ---
Author Organization [facility] Care Team Providers Care Deck Specialist Name Role Phone Avis Lepe Unavailable Unavailable Diego Hyatt Unavailable Unavailable Allergies and adverse reactions Code CodeSystem Substance Reaction Severity StartDate Concern Status 36350 RXNORM Pioglitazone Severe 10/06/[address] Penicillins Mild 10/06/2020 activ e 7258 RXNORM Naproxen Mild 10/06/2020 active 6809 RXNORM Metformin Mild 10/06/2020 active Kiwi Fruit Severe 08/04/2006 active Care Team Name Role Address Phone Organization Dates Diego HARRIS Genevive [address] [facility], [address], [place], [place], [facility] (Office): [facility] 10/06/2020 - 10/21/2020 Avis Lepe Genevive [address] [facility] [address], [place], [place], [facility] (Office): : [facility] 10/06/2020 - 10/21/2020 Immunizations Immunization Status Vaccine Details Vaccine Code CodeSystem Date Notes Influenza completed Influenza, high-dose, split virus, quadrivalent, injectable, preservative free 197 CVX created date: 10/06/2020 administer ed date: 12/17/2019 TB 2 Step Mantoux Skin Test completed tuberculin skin test; unspecified formulation lotNumber: [id number] expiry: 10/11/2021 Mfg: Superplayer Given 0.1 ml Left Forearm intradermally Step 1 of Multi-step with next step required 98 CVX created date: 10/09/2020 consent date: 10/09/2020 administer ed date: 10/09/2020 Result read on 10/12/20 at 0835 by AMBER Silvestre 13 completed pneumococcal conjugate vaccine, 13 valent 133 CVX created date: 10/06/2020 administer ed date: 02/21/2015 Pneumovax 23 completed pneumococcal polysaccharide vaccine, 23 valent 33 CVX created date: 10/06/2020 administer ed date: 11/29/2011 TDAP completed tetanus toxoid, reduced diphtheria toxoid, and acellular pertussis vaccine, adsorbed 115 CVX created date: 10/06/2020 administer ed date: 02/21/2015 Mental Status Section Date Assessment Total Score Description 10/21/2020 BIMS 10 moderate cognit kylie impairment CAM 0 No delirium ind icated PHQ-9 01 minimal depress ion 10/12/2020 BIMS 07 severe cognitiv e impairment CAM 2 Delirium indica mana PHQ-9 06 mild depression Insurance Providers Problems Problem # Description Date of onset Resolved Date Code CodeSystem Concern Status 1 ATHEROSCLEROTIC HEART DISEASE OF [place] CORONARY ARTERY WITH OTHER FORMS OF ANGINA PECTORIS [id number] active 2 CHRONIC SYSTOLIC (CONGESTIVE) HEART FAILURE [address] active 3 COVID-[address] active 4 DEPENDENCE ON OTHER ENABLING MACHINES AND DEVICES [address] active 5 DYSPHAGIA, OROPHARYNGEAL PHASE [address] active 6 [address]KALEMIA [address] active 7 INSOMNIA, UNSPECIFIED [address] active 8 PRISON (CURRENT) USE OF INSULIN [address] active 9 MORBID (SEVERE) OBESITY DUE TO EXCESS CALORIES [address] active 10 OBSTRUCTIVE SLEEP APNEA (ADULT) (PEDIATRIC) [address] active 11 PNEUMONIA DUE TO CORONAVIRUS DISEASE [address] active 12 PRESENCE OF RIGHT ARTIFICIAL KNEE JOINT [address] active 13 SUPRAVENTRICULAR TACHYCARDIA [address] active 14 TYPE 2 DIABETES MELLITUS WITHOUT COMPLICATIONS [address] active 15 UNSPECIFIED ATRIAL FLUTTER [address] active 16 UNSPECIFIED OSTEOARTHRITIS, UNSPECIFIED SITE [address] active Reason for Referral No Reasons for Referral Entered Social History Social History Observation Description Start Date End Date Code Code System Current Smoking Status Tobacco smoking consumption unknown 456968782 SNOMED CT Sex Assigned At Female 1945 [address]90-1 [facility] Gender Identity Sexual Orientation Vital Signs Code Code System Vitals Name Values and Units Timing Information 85382-0 LOINC Weight Dikvk=639.5 Units=Lbs 12/2020 2339-0 LOINC Blood Sugar Nnowi=338.0 Units=mg/dL 10/21/2020 8310-5 LOINC Body Temperature Value=97.3 Units= F 10/21/2020 70241-9 LOINC O2 % BldC Oximetry Value=95.0 Units= % 10/21/2020 8462-4 [facility] Blood Pressure-Diastolic Value=51 Un its=mmHg 10/21/2020 8480-6 [facility] Blood Pressure-Systolic Value=98 Uni ts=mmHg 10/21/2020 9279-1 [facility] Respiratory Rate Value=18.0 Units=/m in 10/19/2020 8867-4 [facility] Heart rate Value=61.0 Units=/min 10/2020 58162-5 [facility] Pain Level Value=1.0 10/19/2020 8302-2 [facility] Height Value=63.0 Units=Inches 10/07/2020
--- OUTSIDE RECORDS SUMMARY | 2024-11-24 00:15 | XMS_ITS | Clinical Summary ---
Author Organization [facility] Address [address] [place] [id number] Care Team Providers Care Deputy Sheriff Civil Division Name Role Phone Diego Hyatt MD Primary Care Provider [phone] Allergies Active Allergy Reactions Criticality Noted Date [...] needed 72 Each 11 2 Active vit C,A-Wk-fqnnx-lut ein-zeaxan (PreserVision AREDS-2) capsuleIndicatio ns:Bilateral exudative age-related [...] DAILY 90 Tablet 3 4 Active Insulin [place], Disposable, (UltiCare Pen Needle) 29 gauge x [...] kidney disease, unspecified CKD stage, unspecified whether intermission coordinator insulin use (HC) To be used to read blood sugars, follow through freight engineer directions. Change each sensor every 14 days 2 Each 4 Active FreeStyle Cassandra 3 [place] for continuous blood glucose monitor (CGM)Indications :Type 2 diabetes mellitus with diabetic chronic kidney disease, unspecified CKD stage, unspecified whether intermission coordinator insulin use (HC) To be used to read blood sugars follow through freight engineer directions. 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 GUNNER Office Visit [facility] [address] [place] [address] Zay Patiño MD [address] [place] [address] Health Maintenance Due Date Last Done Comments [...] this topic Medical Devices Implanted Type Area Runner Out Device Identifier Shelf Expiration Date Model / Serial / Lot [employer] Mini[employer] - [id number] Implanted:Qty: 1 on 09/15/2007 at [facility] [employer] 05/19/2010 [id number] / / [id number] Procedures Procedure Name Priority Date/Time Associated Diagnosis [...] Phone Billing Address Personal/Family Spouse 1937 [address] [place] [address] [place] [address] MEDICARE PART B HB ONLY MEDICARE PART A HB ONLY MEDICARE PB ONLY [facility] Advance Directives Documents on File Type Date Recorded 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
== END 2024-11-23 12:05 | disposition home or self-care (01) ==
LOC: NPINS 12:04
PROVIDERS: PCP Family Medicine; Visit Provider Nurse Practitioner Gerontology
DX: E11.9 Type 2 diabetes mellitus without complications (principal); R53.1 Weakness
CPT/HCPCS: 80048; 83036; 85025